=== PATIENT | female | born 1990 | race Caucasian/White ===

== ENCOUNTER 2016-04-29 14:30 | Emergency (ER) | payer OTHER ==
[2016-04-29 14:46] VITALS: BP 118/76; PULSE 80; TEMP 99; BMI 26.1
--- NOTE | 2016-04-29 15:42 | PDOC ---
History of Present Illness - General Chief Complaint: Cold Symptoms Stated Complaint: FEVER, COLD, EYE PAIN Time Seen by Provider: 04/29/16 15:29 History Source: Patient Exam Limitations: No Limitations - History of Present Illness Initial Comments: 04/29/16 15:42 CHIEF COMPLAINT: Throat pain HISTORY OF PRESENT ILLNESS: This is an otherwise healthy 26-year-old female who presents for evaluation of one week of fever (TMax 39C), throat pain, and nasal congestion. Her children have been sick with similar symptoms. Today, she also developed right eye redness, pain, and discharge. Vital signs on arrival are unremarkable; patient did take Tylenol prior to arrival. REVIEW OF SYSTEMS: GENERAL/CONSTITUTIONAL: Fever, bodyaches. No weakness. No weight change. HEAD, EYES, EARS, NOSE AND THROAT: Throat pain. Nasal congestion. CARDIOVASCULAR: No chest pain or palpitations. RESPIRATORY: Dry cough. No wheezing or shortness of breath. GASTROINTESTINAL: No nausea, vomiting, diarrhea or constipation. GENITOURINARY: No dysuria, frequency, or change in urination. MUSCULOSKELETAL: No joint or muscle swelling or pain. No neck or back pain. SKIN: No rash or easy bruising. NEUROLOGIC: No headache, vertigo, loss of consciousness, or loss of sensation. PSYCHIATRIC: No depression or anxiety. ENDOCRINE: No increased thirst. No abnormal weight change. HEMATOLOGIC/LYMPHATIC: No anemia, easy bleeding, or history of blood clots. ALLERGIC/IMMUNOLOGIC: No hives or skin allergy. No latex allergy. PHYSICAL EXAM: GENERAL: The patient is awake, alert, and fully oriented, in no acute distress. ENT: Pharyngeal erythema, tender cervical adenopathy. Pupils equal, round and reactive to light, extraocular movements intact, sclera anicteric, conjunctiva clear. Neck supple. LUNGS: Clear to auscultation bilaterally. Normal excursion. No respiratory distress or use of accessory muscles. CV: RRR, S1/S2, no MRG. Cap refill < 2 sec. ABDOMEN: Soft, non-distended, non-tender. EXTREMITIES: Normal range of motion, no edema. NEUROLOGICAL: Normal speech, normal gait. CN II-XII grossly intact. PSYCH: Normal mood, normal affect. SKIN: Warm, dry, normal turgor, no rashes or lesions noted. Past History - Past Medical History Allergies/Adverse Reactions: Allergies Allergy/AdvReac Type Severity Reaction Status Date / Time No Known Allergies Allergy Verified 04/29/16 14:46 Home Medications: Ambulatory Orders Amoxicillin/Potassium Clav [Augmentin 875-125 Tablet] 1 each PO BID #14 tablet 04/29/16 Asthma: No Cancer: No Cardiac Disorders: No Diabetes: No HTN: No Seizures: No Thyroid Disease: No - Psycho/Social/Smoking Cessation Hx Anxiety: No Suicidal Ideation: No Smoking History: Never smoked Have you smoked in the past 12 months: No Hx Alcohol Use: No Drug/Substance Use Hx: No Substance Use Type: None Hx Substance Use Treatment: No *Physical Exam - Vital Signs Last Vital Signs Temp Pulse Resp BP Pulse Ox 99.0 F 80 20 118/76 100 04/29/16 14:44 04/29/16 14:44 04/29/16 14:44 04/29/16 14:44 04/29/16 14:44 Medical Decision Making - Medical Decision Making 04/29/16 16:05 A/P: 26 year old female with fever, congestion, throat pain; also with right eye conjunctivitis. 1. Rapid flu and strep 2. Motrin 600mg po for pain, Sudafed 60mg po for congestion 3. Tobramycin ophthalmic gtt for conjunctivitis 4. Re-assess 04/29/16 17:10 Strep negative, however strongly suspect strep with fever and adenopathy. Will treat. *DC/Admit/Observation/Transfer Diagnosis at time of Disposition: Pharyngitis Qualifiers: Pharyngitis/tonsillitis etiology: unspecified etiology Qualified Code(s): J02.9 - Acute pharyngitis, unspecified - Discharge Dispostion Disposition: HOME Condition at time of disposition: Stable Admit: No - Prescriptions Prescriptions: Amoxicillin/Potassium Clav [Augmentin 875-125 Tablet] 1 each PO BID #14 tablet - Referrals Referrals: Jenn Munoz MD [Primary Care Provider] - 3 days - Patient Instructions Printed Discharge Instructions: DI for Pharyngitis/Tonsillopharyngitis -- Adult Additional Instructions: -Take Augmentin as prescribed for strep throat -Continue Motrin as needed for fever -Drink plenty of fluids -Follow up with your primary care doctor this week -Return here for difficulty breathing, inability to swallow fluids, or any other concerning symptoms
[2016-04-29] MEDS ORDERED: PSEUDOEPHEDRINE HCL 60 MG TABLET PO ONE (15:46)
[2016-04-29] MEDS ORDERED: IBUPROFEN 600 MG TABLET (FP) PO ONE ×2 (15:46→15:49)
[2016-04-29] MEDS ORDERED: TOBRAMYCIN 0.3% OPHTH SOLN 5 ML BOTTLE OD ONE (15:48)
[2016-04-29] MEDS ORDERED: TOBRAMYCIN 0.3% OPHTH SOLN 5 ML BOTTLE ONE (15:54)
== END 2016-04-29 17:19 | disposition home or self-care (01) ==
LOC: JERFT 14:30
DX: J02.9 Acute pharyngitis, unspecified (principal)
CPT/HCPCS: 84703; 87070; 87430; 87804; 99281-25

== ENCOUNTER 2017-08-28 00:54 | Emergency (ER) | payer OTHER ==
[2017-08-28 01:37] VITALS: BP 115/67; PULSE 88; TEMP 98.6; BMI 29.2
--- NOTE | 2017-08-28 03:28 | PDOC ---
History of Present Illness - General Chief Complaint: Pain, Acute Stated Complaint: ABD PAIN Time Seen by Provider: 08/28/17 02:48 History Source: Patient Exam Limitations: No Limitations - History of Present Illness Travel History: No Initial Comments: 08/28/17 04:27 Best Contact: PCP:Dr. Hogan Pmhx:N/A Pshx:N/A Allergies:NKDA LMP: 08/20/2017 27-year-old female presents to the emergency department complaining of pelvic pain, burning upon urination, hesitancy, dysuria and urgency with left-sided flank pain 1 day without fever, chills, nausea/vomiting, chest pain, shortness of breath, abdominal discomfort. Patient states she noticed the burning upon urination increase over the past 5 hours. Past History - Past Medical History Allergies/Adverse Reactions: Allergies Allergy/AdvReac Type Severity Reaction Status Date / Time No Known Allergies Allergy Verified 08/28/17 01:27 Home Medications: Ambulatory Orders Ciprofloxacin HCl [Cipro] 500 mg PO BID #14 tablet 08/28/17 Famotidine [Pepcid -] 20 mg PO BID 08/28/17 Asthma: No Cancer: No Cardiac Disorders: No COPD: No Diabetes: No HTN: No Seizures: No Thyroid Disease: No Other medical history: Pt denies - Suicide/Smoking/Psychosocial Hx Smoking History: Never smoked Have you smoked in the past 12 months: No Information on smoking cessation initiated: No Hx Alcohol Use: No Drug/Substance Use Hx: No Substance Use Type: None Hx Substance Use Treatment: No Review of Systems - Review of Systems Able to Perform ROS?: Yes Comments:: 08/28/17 04:29 CONSTITUTIONAL: Absent: fever, chills, diaphoresis, generalized weakness, malaise, loss of appetite HEENT: Absent: rhinorrhea, nasal congestion, throat pain, throat swelling, difficulty swallowing, mouth swelling, ear pain, eye pain, visual Changes CARDIOVASCULAR: Absent: chest pain, loss of consciousness, palpitations, irregular heart rate, peripheral edema RESPIRATORY: Absent: cough, shortness of breath, dyspnea with exertion, orthopnea, wheezing, stridor, hemoptysis GASTROINTESTINAL: Absent: abdominal pain, abdominal distension, nausea, vomiting, diarrhea, constipation, melena, hematochezia GENITOURINARY: +left flank pain, dysuria, frequency, urgency, hesitancy, Absent: hematuria, genital pain MUSCULOSKELETAL: Absent: myalgia, arthralgia, joint swelling SKIN: Absent: rash, itching, pallor HEMATOLOGIC/IMMUNOLOGIC: Absent: easy bleeding, easy bruising, lymphadenopathy, frequent infections ENDOCRINE: Absent: unexplained weight gain, unexplained weight loss, heat intolerance, cold intolerance NEUROLOGIC: Absent: headache, focal weakness or paresthesias, dizziness, unsteady gait, seizure, mental status changes, bladder or bowel incontinence PSYCHIATRIC: Absent: anxiety, depression, suicidal or homicidal ideation, hallucinations. Is the patient limited Italian proficient: No *Physical Exam - Vital Signs Last Vital Signs Temp Pulse Resp BP Pulse Ox 98.6 F 88 20 115/67 97 08/28/17 01:27 08/28/17 01:27 08/28/17 01:27 08/28/17 01:08/28/17 01:27 - Physical Exam Comments: 08/28/17 04:30 GENERAL: Well developed, well nourished. Awake and alert. No acute distress. HEENT: Normocephalic, atraumatic. PERRLA, EOMI. No conjunctival pallor. Sclera are non- icteric. Moist mucous membranes. Oropharynx is clear. NECK: Supple. Full ROM. No JVD. Carotid pulses 2+ and symmetric, without bruits. No thyromegaly. No lymphadenopathy. CARDIOVASCULAR: Regular rate and rhythm. No murmurs, rubs, or gallops. Distal pulses are 2+ and symmetric. PULMONARY: No evidence of respiratory distress. Lungs clear to auscultation bilaterally. No wheezing, rales or rhonchi. ABDOMINAL: +Left CVAT Soft. Non-tender. Non-distended. No rebound or guarding. No organomegaly. Normoactive bowel sounds. MUSCULOSKELETAL Normal range of motion at all joints. No bony deformities or tenderness. No CVA tenderness. EXTREMITIES: No cyanosis. No clubbing. No edema. No calf tenderness. SKIN: Warm and dry. Normal capillary refill. No rashes. No jaundice. NEUROLOGICAL: Alert, awake, appropriate. Cranial nerves 2-12 intact. No deficits to light touch and temperature in face, upper extremities and lower extremities. No motor deficits in the in face, upper extremities and lower extremities. Normoreflexic in the upper and lower extremities. Normal speech. Toes are down- going bilaterally. Gait is normal without ataxia. PSYCHIATRIC: Cooperative. Good eye contact. Appropriate mood and affect. ED Treatment Course - LABORATORY CBC & Chemistry Diagram: 08/28/17 03:31 08/28/17 03:31 *DC/Admit/Observation/Transfer Diagnosis at time of Disposition: Acute pyelonephritis - Discharge Dispostion Disposition: HOME Condition at time of disposition: Stable Admit: No - Prescriptions Prescriptions: Ciprofloxacin HCl [Cipro] 500 mg PO BID #14 tablet - Referrals Referrals: Jenn Munoz MD [Primary Care Provider] - Henry Hernández MD [Staff Physician] - - Patient Instructions Printed Discharge Instructions: DI for Kidney Infection Additional Instructions: Increase fluids Take your antibiotics as prescribed until completion Follow up with the urologist listed on your discharge/Dr. Hernández Pelvic rest Return back to the ER for severe/persistent or worsening symptoms - Post Discharge Activity
[2017-08-28] MEDS ORDERED: SODIUM CHLORIDE 1,000 ML IV STA (03:30)
[2017-08-28 03:40] LABS: BASO % 0.4 % (0-2.0); EOS % 0.4 % (0-4.5); HEMATOCRIT 36.2 % (32.4-45.2); HEMOGLOBIN 12.2 GM/dL (10.7-15.3); LYMPH % 10.1 % (8-40); MCHC 33.7 g/dl (32.0-36.0); MEAN CELL VOLUME 89.1 fl (80-96); MEAN PLT VOLUME 8.7 fl (7.5-11.1); MONO % 1.5 % (3.8-10.2); NEUT % 87.6 % (42.8-82.8); PLATELET COUNT 151 K/MM3 (134-434); RBC 4.07 M/mm3 (3.60-5.2); RDW 13.4 % (11.6-15.6); WHITE BLOOD COUNT 6.6 K/mm3 (4.0-10.0)
[2017-08-28 04:08] LABS: URINE APPEARANCE SLCLOUDY; URINE BILIRUBIN NEGATIVE (<2.0 mg/dL); URINE COLOR LTYELLOW; URINE GLUCOSE (UA) NEGATIVE (NEGATIVE); URINE KETONE TRACE (NEGATIVE); URINE NITRITE NEGATIVE (NEGATIVE); URINE PROTEIN NEGATIVE (NEGATIVE); URINE UROBILINOGEN NEGATIVE mg/dL (0.2-1.0)
[2017-08-28 04:11] LABS: URINE LEUK ESTERASE 2+ (NEGATIVE)
[2017-08-28 04:12] LABS: EPI CELLS RARE /HPF (FEW); URINE BACTERIA RARE /hpf (NONE SEEN); URINE MUCUS RARE
[2017-08-28 04:14] LABS: HCG,QUALITATIVE URINE NEGATIVE
[2017-08-28 04:26] LABS: ALBUMIN 3.9 g/dl (3.4-5.0); BILIRUBIN,TOTAL 0.4 mg/dL (0.2-1.0); BLOOD UREA NITROGEN 13 mg/dL (7-18); CALCIUM 8.7 mg/dL (8.5-10.1); CO2 28 mmol/L (21-32); CREATININE 0.7 mg/dL (0.55-1.02); GLUCOSE,RANDOM 114 mg/dL (74-106); SGOT/AST 20 U/L (15-37); SGPT/ALT 23 U/L (12-78)
[2017-08-28] MEDS ORDERED: CIPROFLOXACIN 500 MG TABLET (RESTRICTED TO ID) PO ONE (04:31)
[2017-08-28 05:04] LABS: ALK PHOS 66 U/L (45-117); ANION GAP 4 (8-16); CHLORIDE 107 mmol/L (98-107); SODIUM 139 mmol/L (136-145)
== END 2017-08-28 04:59 | disposition home or self-care (01) ==
LOC: JER 00:54
DX: N10 Acute pyelonephritis (principal)
CPT/HCPCS: 36415; 80053; 81003; 81015; 84703; 85025; 99282-25